=== PATIENT | male | born 1960 | race Caucasian/White ===

== ENCOUNTER 2024-09-14 17:17 | Inpatient (IN) | payer OTHER ==
[~2024-09-14] VITALS: Ht 182.9 cm; Wt 126.1 kg
[~2024-09-14 17:17] MED LIST: AMLO-257 PO; HEPA500018 SQ; INSU100V SQ; METF750T57 PO; PANT-31 PO; PIPE3.3773 IV; VANC1.2524 IV
[2024-09-14] MEDS ORDERED: DOCUSATE SODIUM 283 MG/5 ML MINI-ENEMA PR PRN (23:30)
[2024-09-14 23:55] VITALS: BP 153/69; PULSE 86; RESP 18; TEMP 98.6; O2SAT 95
[2024-09-15] MEDS ORDERED: DEXTROSE 50%-WATER 25 GM/50 ML SYRINGE IVP PRN
[2024-09-15] MEDS ORDERED: BISACODYL 10 MG RECTAL RECTAL SUPPOSITORY PR PRN
[2024-09-15] MEDS: HEPARIN SODIUM,PORCINE 5,000 UNITS/ML VIAL SQ SCH (00:25)
[2024-09-15 01:49] VITALS: O2SAT 95
[2024-09-15 07:00] LABS: BASOPHILS % (AUTO) 0.9 % (0.0-2.0); EOSINOPHILS % (AUTO) 4.1 % (1.0-6.0); HEMATOCRIT 33.7 % (41-53); HEMOGLOBIN 11.2 g/dL (13.5-17.5); LYMPHOCYTES # (AUTO) 2.2 K/uL (1.0-4.8); LYMPHOCYTES % (AUTO) 20.3 % (22.0-44.0); MEAN CORPUSCULAR HEMOGLOBIN 27.1 pg (26.0-34.0); MEAN CORPUSCULAR HGB CONC 33.4 G/dL (31.0-37.0); MEAN CORPUSCULAR VOLUME 81 fL (80-100); MONOCYTES % (AUTO) 8.8 % (2.0-9.0); NEUTROPHILS # (AUTO) 7.3 K/uL (1.8-7.7); NEUTROPHILS % (AUTO) 65.9 % (40.0-70.0); PLATELET COUNT (AUTO) 664 K/uL (150-450); RED BLOOD CELL COUNT(AUTO) 4.15 MIL/uL (4.50-5.90); RED CELL DISTRIBUTION WIDTH 15.2 % (11.5-14.5)
[2024-09-15 07:06] LABS: GLUCOMETER DEV NAME(LOC) 2WR.2B; GLUCOSE,POINT OF CARE 234 MG/DL (70-110)
[2024-09-15 07:15] LABS: ALANINE AMINOTRANSFERASE 38 U/L (12-78); ALKALINE PHOSPHATASE 146 U/L (46-116); ANION GAP 8 mmol/L (8-16); ASPARTATE AMINOTRANSFERASE 43 U/L (15-37); BILIRUBIN,TOTAL 0.4 mg/dL (0.1-1.0); CALCIUM, TOTAL 8.8 mg/dL (8.8-10.5); CARBON DIOXIDE 29 mmol/L (22-29); CHLORIDE 99 mmol/L (98-107); CREATININE 0.93 mg/dL (0.60-1.30); GLOMERULAR FILTR. RATE CALC > 60 mL/min (>60); GLUCOSE,RANDOM 241 mg/dL (70-110); POTASSIUM 4.3 mmol/L (3.5-5.1); SODIUM SERUM 136 mmol/L (136-145); TOTAL PROTEIN, SERUM 7.7 g/dL (6.4-8.2); UREA NITROGEN, BLOOD 11 mg/dL (7-18)
[2024-09-15 08:05] VITALS: BP 140/70; PULSE 78; RESP 18; TEMP 98.4; O2SAT 98
[2024-09-15] MEDS: INSULIN LISPRO 100 UNITS/ML SQ PRN (08:24)
[2024-09-15] MEDS: DOCUSATE SODIUM 250 MG CAPSULE PO SCH (09:39)
[2024-09-15] MEDS: ASCORBIC ACID 500 MG TABLET PO SCH (09:39)
[2024-09-15] MEDS: AmLODIPine BESYLATE 5 MG TABLET PO SCH (09:39)
[2024-09-15] MEDS: HYDROCODONE/ACETAMINOPHEN 5-325 MG TABLET PO PRN (09:39)
[2024-09-15] MEDS: PANTOPRAZOLE SODIUM 40 MG DR TABLET PO SCH (09:39)
[2024-09-15] MEDS: ETHYL ALCOHOL 62% ANTISEPTIC NASAL SANITIZER 0.6 ML AMPUL NASAL SCH (09:40)
[2024-09-15] MEDS: ZINC SULFATE 220 MG CAPSULE PO SCH (09:43)
[2024-09-15] MEDS: NYSTATIN 30 GM CREAM TP SCH (10:13)
[2024-09-15] MEDS: COLD CREAM, SKIN EMOLLIENT 340 GM JAR TP SCH (10:13)
[2024-09-15] MEDS: SULFAMETHOX/TRIMETH DS 800-160 MG/TABLET PO ONE (11:01)
[2024-09-15 11:30] VITALS: BP 138/74; PULSE 80; RESP 18; TEMP 98.6; O2SAT 97
[2024-09-15 12:06] LABS: GLUCOMETER DEV NAME(LOC) 2WR.2B; GLUCOSE,POINT OF CARE 262 MG/DL (70-110)
[2024-09-15 17:00] LABS: GLUCOMETER DEV NAME(LOC) 2WR.2B; GLUCOSE,POINT OF CARE 219 MG/DL (70-110)
[2024-09-15 20:00] VITALS: BP 133/69; PULSE 87; RESP 18; TEMP 98.6; O2SAT 95
[2024-09-15] MEDS ORDERED: INSULIN GLARGINE,HUM.REC.ANLOG 100 UNITS/ML SQ SCH ×2 (21:00)
[2024-09-15] MEDS: INSULIN GLARGINE,HUM.REC.ANLOG 100 UNITS/ML SQ SCH (21:31)
[2024-09-15] MEDS: SENNOSIDES 8.6 MG TABLET PO SCH (21:33)
[2024-09-15] MEDS: SULFAMETHOX/TRIMETH DS 800-160 MG/TABLET PO SCH (21:33)
[2024-09-15 22:21] LABS: GLUCOMETER DEV NAME(LOC) 2WR.2B; GLUCOSE,POINT OF CARE 258 MG/DL (70-110)
[2024-09-16 07:06] LABS: GLUCOMETER DEV NAME(LOC) 2WR.1D; GLUCOSE,POINT OF CARE 226 MG/DL (70-110)
[2024-09-16 07:55] VITALS: BP 136/63; PULSE 87; RESP 19; TEMP 98.3; O2SAT 97
[2024-09-16] MEDS: NYSTATIN 15 GM POWDER BOTTLE TP SCH (10:52)
[2024-09-16] MEDS: MAGNESIUM HYDROXIDE SUSPENSION 30 ML UDCUP PO PRN (11:56)
[2024-09-16 13:06] LABS: GLUCOMETER DEV NAME(LOC) 2WR.2B; GLUCOSE,POINT OF CARE 283 MG/DL (70-110)
[2024-09-16 18:45] LABS: GLUCOMETER DEV NAME(LOC) 2WR.2B; GLUCOSE,POINT OF CARE 215 MG/DL (70-110)
[2024-09-16] MEDS: FLUTICASONE PROPIONATE 50 MCG/SPRAY 16 GM NASAL SPRAY NASAL PRN (20:52)
[2024-09-16 21:00] VITALS: BP 132/69; PULSE 87; RESP 20; TEMP 98.5; O2SAT 96
[2024-09-16 21:30] LABS: GLUCOMETER DEV NAME(LOC) 2WR.1D; GLUCOSE,POINT OF CARE 207 MG/DL (70-110)
[2024-09-16] MEDS: OXYMETAZOLINE HCL 0.05% 15 ML NASAL SPRAY NASAL SCH (22:51)
[2024-09-17 07:15] LABS: GLUCOMETER DEV NAME(LOC) 2WR.2B; GLUCOSE,POINT OF CARE 185 MG/DL (70-110)
[2024-09-17 08:00] VITALS: BP 131/61; PULSE 73; RESP 19; TEMP 98.2; O2SAT 97
[2024-09-17] MEDS: PNEUMOCOCCAL VACCINE POLYVALENT 0.5 ML SYRINGE [PPSV23] IM. ONE (09:00)
[2024-09-17] MEDS: INFLUENZA VIRUS VACCINE TVS (6MO+) 2024-25/PF 45 MCG/0.5 ML SYRINGE IM. ONE (09:00)
[2024-09-17 12:46] LABS: GLUCOMETER DEV NAME(LOC) 2WR.2B; GLUCOSE,POINT OF CARE 203 MG/DL (70-110)
[2024-09-17 17:55] LABS: GLUCOMETER DEV NAME(LOC) 2WR.1D; GLUCOSE,POINT OF CARE 236 MG/DL (70-110)
[2024-09-17 20:02] VITALS: BP_SYST 105; BP_SYST 111; BP_DIAS 56; BP_DIAS 64; PULSE 91; PULSE 97; RESP 18; TEMP 98.1; TEMP 98.2; O2SAT 97; O2SAT 98
[2024-09-17 21:56] LABS: GLUCOMETER DEV NAME(LOC) 2WR.1D; GLUCOSE,POINT OF CARE 198 MG/DL (70-110)
[2024-09-17 22:00] VITALS: O2SAT 97
[2024-09-18 07:16] LABS: GLUCOMETER DEV NAME(LOC) 2WR.1D; GLUCOSE,POINT OF CARE 198 MG/DL (70-110)
[2024-09-18 08:00] VITALS: BP 132/71; PULSE 99; RESP 19; TEMP 98.1; O2SAT 98
[2024-09-18] MEDS: ACETAMINOPHEN 325 MG TABLET PO PRN (10:03)
[2024-09-18 13:01] LABS: GLUCOMETER DEV NAME(LOC) 2WR.1D; GLUCOSE,POINT OF CARE 264 MG/DL (70-110)
[2024-09-18 17:21] LABS: GLUCOMETER DEV NAME(LOC) 2WR.1D; GLUCOSE,POINT OF CARE 217 MG/DL (70-110)
[2024-09-18 20:00] VITALS: BP 134/72; PULSE 79; RESP 20; TEMP 98.3; O2SAT 95
[2024-09-18] MEDS: INSULIN GLARGINE,HUM.REC.ANLOG 100 UNITS/ML SQ SCH (20:56)
[2024-09-18 21:26] LABS: GLUCOMETER DEV NAME(LOC) 2WR.2B; GLUCOSE,POINT OF CARE 180 MG/DL (70-110)
[2024-09-19 06:41] LABS: GLUCOMETER DEV NAME(LOC) 2WR.2B; GLUCOSE,POINT OF CARE 203 MG/DL (70-110)
[2024-09-19 08:00] VITALS: BP 135/67; PULSE 72; RESP 19; TEMP 98.2; O2SAT 97
[2024-09-19 12:20] LABS: BASOPHILS % (AUTO) 1.1 % (0.0-2.0); EOSINOPHILS % (AUTO) 5.7 % (1.0-6.0); HEMATOCRIT 35.6 % (41-53); HEMOGLOBIN 11.9 g/dL (13.5-17.5); LYMPHOCYTES # (AUTO) 2.3 K/uL (1.0-4.8); LYMPHOCYTES % (AUTO) 29.8 % (22.0-44.0); MEAN CORPUSCULAR HEMOGLOBIN 27.6 pg (26.0-34.0); MEAN CORPUSCULAR HGB CONC 33.6 G/dL (31.0-37.0); MEAN CORPUSCULAR VOLUME 82 fL (80-100); MONOCYTES # (AUTO) 0.7 K/uL (0.1-1.0); MONOCYTES % (AUTO) 9.6 % (2.0-9.0); NEUTROPHILS # (AUTO) 4.2 K/uL (1.8-7.7); NEUTROPHILS % (AUTO) 53.8 % (40.0-70.0); PLATELET COUNT (AUTO) 664 K/uL (150-450); RED BLOOD CELL COUNT(AUTO) 4.33 MIL/uL (4.50-5.90); RED CELL DISTRIBUTION WIDTH 15.8 % (11.5-14.5); WHITE BLOOD COUNT (AUTO) 7.8 K/uL (4.5-11.0)
[2024-09-19 12:31] LABS: ANION GAP 6 mmol/L (8-16); CARBON DIOXIDE 26 mmol/L (22-29); CHLORIDE 98 mmol/L (98-107); CREATININE 1.01 mg/dL (0.60-1.30); GLOMERULAR FILTR. RATE CALC > 60 mL/min (>60); GLUCOSE,RANDOM 237 mg/dL (70-110); POTASSIUM 4.5 mmol/L (3.5-5.1); SODIUM SERUM 130 mmol/L (136-145); UREA NITROGEN, BLOOD 16 mg/dL (7-18)
[2024-09-19 12:50] LABS: GLUCOMETER DEV NAME(LOC) 2WR.2B; GLUCOSE,POINT OF CARE 239 MG/DL (70-110)
[2024-09-19 16:00] VITALS: BP 131/64; PULSE 75; RESP 20; O2SAT 95
[2024-09-19 17:41] LABS: GLUCOMETER DEV NAME(LOC) 2WR.1D; GLUCOSE,POINT OF CARE 181 MG/DL (70-110)
[2024-09-19 20:31] VITALS: BP 139/77; PULSE 86; RESP 18; TEMP 98.1; O2SAT 96
[2024-09-19] MEDS: INSULIN GLARGINE,HUM.REC.ANLOG 100 UNITS/ML SQ SCH (20:37)
[2024-09-19 22:25] VITALS: O2SAT 96
[2024-09-20 04:36] LABS: GLUCOMETER DEV NAME(LOC) 2WR.2B; GLUCOSE,POINT OF CARE 200 MG/DL (70-110)
[2024-09-20 07:15] LABS: GLUCOMETER DEV NAME(LOC) 2WR.2B; GLUCOSE,POINT OF CARE 178 MG/DL (70-110)
[2024-09-20 08:00] VITALS: BP 137/64; PULSE 80; RESP 19; TEMP 98.2; O2SAT 95
[2024-09-20 09:33] VITALS: BP 137/64; PULSE 80; RESP 18; TEMP 98.2; O2SAT 95
[2024-09-20 12:16] LABS: GLUCOMETER DEV NAME(LOC) 2WR.2B; GLUCOSE,POINT OF CARE 275 MG/DL (70-110)
[2024-09-20 17:26] LABS: GLUCOMETER DEV NAME(LOC) 2WR.1D; GLUCOSE,POINT OF CARE 179 MG/DL (70-110)
[2024-09-20 19:51] VITALS: BP 132/69; PULSE 85; RESP 18; TEMP 97.6; O2SAT 96
[2024-09-20 20:45] LABS: GLUCOMETER DEV NAME(LOC) 2WR.1D; GLUCOSE,POINT OF CARE 203 MG/DL (70-110)
[2024-09-21 02:13] VITALS: O2SAT 96
[2024-09-21 07:05] LABS: GLUCOMETER DEV NAME(LOC) 2WR.2B; GLUCOSE,POINT OF CARE 180 MG/DL (70-110)
[2024-09-21 07:39] VITALS: BP 140/75; PULSE 86; RESP 19; TEMP 98.2; O2SAT 93
[2024-09-21 08:00] VITALS: BP 140/75; PULSE 86; RESP 19; TEMP 98.2; O2SAT 95
[2024-09-21 12:15] LABS: GLUCOMETER DEV NAME(LOC) 2WR.2B; GLUCOSE,POINT OF CARE 234 MG/DL (70-110)
[2024-09-21] MEDS ORDERED: ASPI-4 PO (13:28)
[2024-09-21] MEDS ORDERED: GLIM-8 PO (13:30)
[2024-09-21 17:51] LABS: GLUCOMETER DEV NAME(LOC) 2WR.1D; GLUCOSE,POINT OF CARE 161 MG/DL (70-110)
[2024-09-21 20:03] VITALS: BP 136/61; PULSE 86; RESP 18; TEMP 97.9; O2SAT 94
[2024-09-21 20:55] LABS: GLUCOMETER DEV NAME(LOC) 2WR.1D; GLUCOSE,POINT OF CARE 202 MG/DL (70-110)
[2024-09-22 00:01] VITALS: O2SAT 94
[2024-09-22 07:06] LABS: GLUCOMETER DEV NAME(LOC) 2WR.1D; GLUCOSE,POINT OF CARE 191 MG/DL (70-110)
[2024-09-22 07:59] LABS: ANION GAP 5 mmol/L (8-16); CALCIUM, TOTAL 9.1 mg/dL (8.8-10.5); CARBON DIOXIDE 29 mmol/L (22-29); CHLORIDE 99 mmol/L (98-107); CREATININE 0.79 mg/dL (0.60-1.30); GLOMERULAR FILTR. RATE CALC > 60 mL/min (>60); GLUCOSE,RANDOM 180 mg/dL (70-110); POTASSIUM 4.3 mmol/L (3.5-5.1); SODIUM SERUM 133 mmol/L (136-145); UREA NITROGEN, BLOOD 18 mg/dL (7-18)
[2024-09-22 08:00] VITALS: BP 120/72; PULSE 79; RESP 18; TEMP 98; O2SAT 95
[2024-09-22 08:20] LABS: B-TYPE NATRIURETIC PEPTIDE 134 pg/mL (0-100)
[2024-09-22 12:56] LABS: GLUCOMETER DEV NAME(LOC) 2WR.2B; GLUCOSE,POINT OF CARE 244 MG/DL (70-110)
[2024-09-22 18:26] LABS: GLUCOMETER DEV NAME(LOC) 2WR.1D; GLUCOSE,POINT OF CARE 161 MG/DL (70-110)
[2024-09-22 20:18] VITALS: BP 126/70; PULSE 81; RESP 16; TEMP 97.6; O2SAT 98
[2024-09-22] MEDS: INSULIN GLARGINE,HUM.REC.ANLOG 100 UNITS/ML SQ SCH (20:25)
[2024-09-22 23:10] LABS: GLUCOMETER DEV NAME(LOC) 2WR.1D; GLUCOSE,POINT OF CARE 204 MG/DL (70-110)
[2024-09-23 00:43] VITALS: O2SAT 98
[2024-09-23 07:00] LABS: GLUCOMETER DEV NAME(LOC) 2WR.1D; GLUCOSE,POINT OF CARE 192 MG/DL (70-110)
[2024-09-23 08:24] VITALS: BP 145/75; PULSE 90; RESP 18; TEMP 98; O2SAT 95
[2024-09-23 10:10] VITALS: O2SAT 95
[2024-09-23 12:06] LABS: GLUCOMETER DEV NAME(LOC) 2WR.2B; GLUCOSE,POINT OF CARE 230 MG/DL (70-110)
[2024-09-23 17:35] LABS: GLUCOMETER DEV NAME(LOC) 2WR.1D; GLUCOSE,POINT OF CARE 177 MG/DL (70-110)
[2024-09-23 20:00] VITALS: BP 131/68; PULSE 88; RESP 19; TEMP 98; O2SAT 97
[2024-09-23] MEDS: ZOLPIDEM TARTRATE 5 MG TABLET PO PRN (21:01)
[2024-09-23 21:51] LABS: GLUCOMETER DEV NAME(LOC) 2WR.2B; GLUCOSE,POINT OF CARE 229 MG/DL (70-110)
[2024-09-24 06:40] LABS: GLUCOMETER DEV NAME(LOC) 2WR.1D; GLUCOSE,POINT OF CARE 157 MG/DL (70-110)
[2024-09-24 08:00] VITALS: BP 142/74; PULSE 85; RESP 18; TEMP 97.6; O2SAT 96
[2024-09-24 12:51] LABS: GLUCOMETER DEV NAME(LOC) 2WR.1D; GLUCOSE,POINT OF CARE 186 MG/DL (70-110)
[2024-09-24 17:15] LABS: GLUCOMETER DEV NAME(LOC) 2WR.2B; GLUCOSE,POINT OF CARE 190 MG/DL (70-110)
[2024-09-24 20:00] VITALS: BP 136/70; PULSE 85; RESP 18; TEMP 97.9; O2SAT 93
[2024-09-25 00:04] VITALS: O2SAT 95
[2024-09-25 05:26] LABS: GLUCOMETER DEV NAME(LOC) 2WR.2B; GLUCOSE,POINT OF CARE 181 MG/DL (70-110)
[2024-09-25 06:55] LABS: GLUCOMETER DEV NAME(LOC) 2WR.1D; GLUCOSE,POINT OF CARE 168 MG/DL (70-110)
[2024-09-25 08:07] VITALS: BP 130/69; PULSE 84; RESP 19; TEMP 98; O2SAT 97
[2024-09-25 12:56] LABS: GLUCOMETER DEV NAME(LOC) 2WR.2B; GLUCOSE,POINT OF CARE 190 MG/DL (70-110)
[2024-09-25 17:45] LABS: GLUCOMETER DEV NAME(LOC) 2WR.1D; GLUCOSE,POINT OF CARE 160 MG/DL (70-110)
[2024-09-25 20:00] VITALS: BP 137/79; PULSE 85; RESP 20; TEMP 98; O2SAT 97
[2024-09-25 22:26] LABS: GLUCOMETER DEV NAME(LOC) 2WR.1D; GLUCOSE,POINT OF CARE 193 MG/DL (70-110)
[2024-09-26 06:55] LABS: GLUCOMETER DEV NAME(LOC) 2WR.2B; GLUCOSE,POINT OF CARE 200 MG/DL (70-110)
[2024-09-26 08:00] VITALS: BP 128/71; PULSE 55; RESP 18; TEMP 98.1; O2SAT 96
[2024-09-26 11:56] LABS: GLUCOMETER DEV NAME(LOC) 2WR.2B; GLUCOSE,POINT OF CARE 249 MG/DL (70-110)
[2024-09-26 17:50] LABS: GLUCOMETER DEV NAME(LOC) 2WR.2B; GLUCOSE,POINT OF CARE 142 MG/DL (70-110)
[2024-09-26 20:09] VITALS: BP 129/72; PULSE 80; RESP 19; TEMP 97.8; O2SAT 97
[2024-09-26 22:16] LABS: GLUCOMETER DEV NAME(LOC) 2WR.2B; GLUCOSE,POINT OF CARE 211 MG/DL (70-110)
[2024-09-27 07:05] LABS: GLUCOMETER DEV NAME(LOC) 2WR.2B; GLUCOSE,POINT OF CARE 167 MG/DL (70-110)
[2024-09-27 08:00] VITALS: BP 141/71; PULSE 87; RESP 18; TEMP 97.8; O2SAT 97
[2024-09-27 08:35] VITALS: BP 109/45; PULSE 85; RESP 18; TEMP 97.8; O2SAT 97
== END 2024-09-27 09:00 | DRG 299 ==
LOC: 2WR 23:16
PROVIDERS: ADMIT Physical Medicine & Rehabilitation; ATTEND Physical Medicine & Rehabilitation
DX: E11.52 Type 2 diabetes mellitus with diabetic peripheral angiopathy with gangrene (principal); A48.0 Gas gangrene; L03.115 Cellulitis of right lower limb; L97.419 Non-pressure chronic ulcer of right heel and midfoot with unspecified severity; F43.20 Adjustment disorder, unspecified; Z74.09 Other reduced mobility; R26.9 Unspecified abnormalities of gait and mobility; E11.65 Type 2 diabetes mellitus with hyperglycemia; I10 Essential (primary) hypertension; E78.5 Hyperlipidemia, unspecified; K21.9 Gastro-esophageal reflux disease without esophagitis; D64.9 Anemia, unspecified; K59.00 Constipation, unspecified; G47.00 Insomnia, unspecified; B96.20 Unspecified Escherichia coli [E. coli] as the cause of diseases classified elsewhere; R09.81 Nasal congestion; E11.621 Type 2 diabetes mellitus with foot ulcer; L97.519 Non-pressure chronic ulcer of other part of right foot with unspecified severity; D75.839 Thrombocytosis, unspecified; M25.571 Pain in right ankle and joints of right foot; E66.01 Morbid (severe) obesity due to excess calories; M79.89 Other specified soft tissue disorders; Z79.899 Other long term (current) drug therapy; Z89.511 Acquired absence of right leg below knee; Z79.4 Long term (current) use of insulin; Z68.37 Body mass index [BMI] 37.0-37.9, adult; Z98.42 Cataract extraction status, left eye; Z98.41 Cataract extraction status, right eye; Z79.82 Long term (current) use of aspirin
CPT/HCPCS: 80048; 80053; 82962; 83036; 83880; 85025; 87081; 97110; 97116; 97163; 97167; 97530; 97535; 99366; J1644; J1815